=== PATIENT | male | born 1960 | race Hispanic/Latino ===

== ENCOUNTER 2020-11-08 10:49 | Outpatient (CLI) | payer BC ==
[2020-11-08] MEDS ORDERED: MIDAZOLAM 2 MG/2 ML INJ ONE (11:49)
[2020-11-08] MEDS ORDERED: propofoL 200 MG/20 ML VIAL IV ONE ×2 (11:49)
[2020-11-08] MEDS ORDERED: SODIUM CHLORIDE 0.9% 1000 ML 1,000 ML ONE (11:54)
[2020-11-08] MEDS ORDERED: LIDOCAINE MPF (2%) 20 MG/1 ML VIAL 5 ML ONE (12:00)
--- NOTE | 2020-11-08 12:40 | Anesthesia Consultation ---
Anesthesia Consult and Med Hx Date of service: 11/08/20 - Airway Anesthetic Teeth Evaluation: Good, Bridges ROM Head & Neck: Adequate Mental/Hyoid Distance: Adequate Mallampati Class: Class II Intubation Access Assessment: Probably Good - Pre-Operative Health Status ASA Pre-Surgery Classification: ASA2 Proposed Anesthetic Plan: MAC - Pulmonary Hx Sleep Apnea: Yes (snoring) - Cardiovascular System Hx Hypertension: Yes Hx Coronary Artery Disease: No (high cholesterol) - Central Nervous System Hx Psychiatric Problems: Yes (claustrophobia)
--- NOTE | 2020-11-08 12:41 | Anesthesia Day of Surgery ---
Anesthesia Day of Surgery - Day of Surgery Patient Examined: Yes Patient H&P Reviewed: Yes Patient is NPO: Yes Beta Blockers: Yes (Labetalol @AM)
[2020-11-08 13:09] VITALS: BP 129/93
--- NOTE | 2020-11-08 13:42 | Cat Scan Report ---
CT ABDOMEN AND PELVIS WITH CONTRAST HISTORY: COMPRESSION OF VEIN, PT WAS SEDATED PER DR. BERG OMNI 300 100 ML. COMPARISON: None. TECHNIQUE: Helical CT images of the abdomen and pelvis were obtained following administration of intr avenous contrast. Sagittal and coronal reformatted images were reviewed. All CT scans at this [facility] are performed using CT dose reduction for ALARA by means of automated exposure control. CONTRAST: 100 ml of intravenous contrast administered. FINDINGS: Abdomen/pelvis: There is excessive streak artifact from posterior fusion hardware throughout the lum bar spine which severely limits this exam. 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 Again detail in this area is very limited. Please correlate with the images. The liver, biliary system, pancreas, spleen, kidneys, adrenal glands and bowel loops are unremarkable . The bladder and prostate gland are within normal limits. Lungs/bones: The lung bases are clear. Borderline heart size. Multilevel lumbar posterior fusion is again noted with extensive artifact. No acute osseous abnormality is appreciated. IMPRESSION: Severely limited exam due to streak artifact from lumbar fusion hardware. 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 Please see above and correlate with the images. Signer Name: Kehinde Miller Jr, MD Signed: 11/08/2020 1:38 PM Workstation Name: [id number]
--- NOTE | 2020-11-08 19:56 | Post Anesthesia Evaluation ---
- Post Anesthesia Evaluation Patient Participated: Yes Airway Patent: Yes Stable Respiratory Function: Yes Nausea/Vomiting: No Temp > 96.8F: Yes Pain Manageable: Yes Adequeate Hydration: Yes Anesthesia Complications: No Block Receding Appropriately: Not Applicable Patient on Ventilator: No
== END 2020-11-08 13:00 | disposition home or self-care (01) ==
LOC: CT 10:49
PROVIDERS: ATTEND Radiology Diagnostic Radiology
DX: I87.1 Compression of vein (principal); I10 Essential (primary) hypertension; G47.30 Sleep apnea, unspecified
CPT/HCPCS: 74177; J2250; J2704; J7030; Q9967